=== PATIENT | male | born 1975 | race Caucasian/White ===

== ENCOUNTER 2017-01-13 16:00 | Emergency (ER) | payer BC ==
[2017-01-13 16:24] VITALS: BP 141/96
--- NOTE | 2017-01-13 16:44 | UC ---
Throat Pain/Nasal Andrei HPI - HPI Summary HPI Summary: 41 year old male with history of sinus infections present with sinus pressure, headache, ST, post nasal drip for 3 days and worsening. He has had some hoarse voice as well. He does smoke and advised to stop . - History of Current Complaint Chief Complaint: UCGeneralIllness Stated Complaint: SINUS Time Seen by Provider: 01/13/17 16:31 Hx Obtained From: Patient Onset/Duration: Gradual Onset Severity: Moderate Cough: Productive - Allergies/Home Medications Allergies/Adverse Reactions: Allergies Allergy/AdvReac Type Severity Reaction Status Date / Time NSAIDs Allergy See Comment Verified 01/13/17 16:27 Home Medications: Home Medications Fexofenadine HCl [Allergy 24-Hr] 180 mg PO DAILY PRN 01/13/17 [History Confirmed 01/13/17] Multiple Vitamin [Multi Vitamin] 1 tab PO DAILY 01/13/17 [History Confirmed ] Pantoprazole TAB (NF) [Protonix TAB (NF)] 40 mg PO BID 01/13/17 [History Confirmed 01/13/17] PMH/Surg Hx/FS Hx/Imm Hx Previously Healthy: Yes Respiratory History: Other - previous sinus infections Other Respiratory History: sinusitis - Surgical History Surgical History: Yes Surgery Procedure, Year, and Place: Appendectomy, 1991, [place]. GASTRIC BYPASS--2016 - Family History Known Family History: Positive: None - Social History Occupation: Employed Full-time Lives: With Family Alcohol Use: Rare Substance Use Type: Marijuana Smoking Status (MU): Heavy Every Day Tobacco Smoker Type: Cigarettes Amount Used/How Often: 1 PPD Length of Time of Smoking/Using Tobacco: 25 Years Have You Smoked in the Last Year: Yes Household Exposure Type: Cigarettes Cessation Counseling: Patient Advised to Stop - Immunization History Most Recent Influenza Vaccination: Not the 2014/2015 Season Review of Systems Constitutional: Fatigue ENT: Sore Throat, Ear Ache, Nasal Discharge, Sinus Congestion, Sinus Pain/ Tenderness All Other Systems Reviewed And Are Negative: Yes Physical Exam Triage Information Reviewed: Yes Appearance: Well-Appearing, No Pain Distress, Well-Nourished Vital Signs: Initial Vital Signs Temp 99.3 F 01/13/17 16:16 Pulse 72 01/13/17 16:16 Resp 22 01/13/17 16:16 BP 141/96 01/13/17 16:16 Pulse Ox 97 01/13/17 16:16 Vital Signs Reviewed: Yes Eye Exam: Normal ENT: Positive: Pharynx normal, Nasal congestion, Nasal drainage, TMs normal, Other: - maxillary sinus pressure b/l. Negative: TM bulging, TM dull, TM red Throat Pain/Nasal Course/Dx - Course Course Of Treatment: Viral at this time. Stop smoking. Treat with OTC for 2-3 days and if sx worsen then at that time start the antibiotics and if he does he is aware of SE -- also advise to f/u with PCP about infection and elevated BP which is likely elevated due to his illness - Differential Dx/Diagnosis Differential Diagnosis/HQI/PQRI: Sinusitis, Tonsillitis, URI Provider Diagnoses: Viral Sinusitis Discharge - Discharge Plan Condition: Good Disposition: HOME Prescriptions: Amoxicillin/Clavulanate TAB* [Augmentin TAB 875*] 875 mg PO BID #20 tab Patient Education Materials: Sinusitis (ED) Referrals: Dianne Hong [Primary Care Provider] - 4 Days Additional Instructions: As we discussed you appear to have a viral sinusitis. It is advised to use claritin, flonase, netti pot at this time and if your symptoms worsen over the next 2-3 days then you may start antibiotics . Good luck quitting smoking.
== END 2017-01-13 16:52 | disposition home or self-care (01) ==
LOC: UCCORT 16:00
DX: J32.8 Other chronic sinusitis (principal); J02.9 Acute pharyngitis, unspecified; Z88.6 Allergy status to analgesic agent; F17.210 Nicotine dependence, cigarettes, uncomplicated
CPT/HCPCS: 99212; G0463

== ENCOUNTER 2019-07-13 09:27 | Emergency (ER) | payer BC, OTHER ==
[2019-07-13 09:47] VITALS: BP 129/85
--- NOTE | 2019-07-13 10:09 | UC ---
FLU HPI - HPI Summary HPI Summary: 43-year-old male with flulike symptoms which started yesterday. - History of Current Complaint Chief Complaint: UCGeneralIllness Stated Complaint: FEVER CHILLS BODYACHES Time Seen by Provider: 07/13/19 09:51 Hx Obtained From: Patient Onset/Duration: Gradual Onset, Still Present Severity Currently: Mild Severity Initially: Mild Pain Intensity: 4 Associated Signs & Symptoms: Positive: Fever, Myalgia, Cough, Nasal Congestion, Headache - Allergy/Home Medications Allergies/Adverse Reactions: Allergies Allergy/AdvReac Type Severity Reaction Status Date / Time NSAIDS (Non-Steroidal AdvReac See Comment Verified 07/13/19 09:40 Anti-Inflamma Home Medications: Home Medications Multiple Vitamin [Multi Vitamin] 1 tab PO DAILY 01/13/17 [History Confirmed ] Pantoprazole TAB * [Protonix TAB*] 40 mg PO BID 01/13/17 [History Confirmed ] Albuterol HFA INHALER* [Ventolin HFA Inhaler*] 2 puff INH Q4H PRN 07/13/19 [ History Confirmed 07/13/19] Sertraline* [Zoloft*] 50 mg PO DAILY 07/13/19 [History Confirmed 07/13/19] PMH/Surg Hx/FS Hx/Imm Hx Previously Healthy: Yes Endocrine History: Diabetes Cardiovascular History: Hypertension - Surgical History Surgical History: Yes Surgery Procedure, Year, and Place: Appendectomy, 1991, [place]. gastric bypass, 2016. perforated bowel - Family History Known Family History: Positive: None, Hypertension, Other - LUNG CA - Social History Occupation: Employed Full-time Lives: With Family - 15 day old daughter at home Alcohol Use: Rare Substance Use Type: Marijuana Substance Use Comment - Amount & Last Used: daily Smoking Status (MU): Former Smoker Type: Cigarettes Amount Used/How Often: 1 PPD Length of Time of Smoking/Using Tobacco: 25 Years Have You Smoked in the Last Year: Yes When Did the Patient Quit Smoking/Using Tobacco: 03/25/2019 Household Exposure Type: Cigarettes - Immunization History Most Recent Influenza Vaccination: Not the Season Review of Systems All Other Systems Reviewed And Are Negative: Yes Constitutional: Positive: Fever, Chills ENT: Positive: Nasal Discharge Respiratory: Positive: Cough - Nonproductive cough Musculoskeletal: Positive: Myalgia Is Patient Immunocompromised?: No Physical Exam Triage Information Reviewed: Yes Appearance: Well-Appearing, No Pain Distress, Well-Nourished Vital Signs: Initial Vital Signs Temp 98.6 F 07/13/19 09:42 Pulse 88 07/13/19 09:42 Resp 16 07/13/19 09:42 BP 129/85 07/13/19 09:42 Pulse Ox 98 07/13/19 09:42 Vital Signs Reviewed: Yes Eyes: Positive: Conjunctiva Clear ENT: Positive: Pharynx normal, Nasal drainage - Clear nasal coryza, TMs normal, Uvula midline Neck: Positive: Supple, Nontender, No Lymphadenopathy Respiratory: Positive: Lungs clear, Normal breath sounds, No respiratory distress, No accessory muscle use Cardiovascular: Positive: RRR, No Murmur, Pulses Normal, Brisk Capillary Refill Musculoskeletal Exam: Normal Neurological Exam: Normal Psychological Exam: Normal Skin Exam: Normal Flu Course/Dx - Course Course Of Treatment: Rapid flu test: Negative Patient is comfortable here. - Differential Dx/Diagnosis Provider Diagnosis: URI (upper respiratory infection) Discharge ED - Sign-Out/Discharge Documenting (check all that apply): Patient Departure All imaging exams completed and their final reports reviewed: No Studies - Discharge Plan Condition: Good Disposition: HOME Patient Education Materials: Upper Respiratory Infection (ED) Referrals: Dianne Hong [Primary Care Provider] - Additional Instructions: Increase fluids, rest, [id number] cold medicines as directed. If you use [id number] cold medicines be aware they do usually contain ibuprofen or Tylenol. Follow-up with your primary care provider if no improvement in 3 or 4 days. - Billing Disposition and Condition Condition: GOOD Disposition: Home
[2019-07-13 10:13] LABS: Influenza A Molecular Negative (Negative); Influenza B Molecular Negative (Negative)
== END 2019-07-13 10:24 | disposition home or self-care (01) ==
LOC: UCCORT 09:27
DX: J06.9 Acute upper respiratory infection, unspecified (principal); E11.9 Type 2 diabetes mellitus without complications; I10 Essential (primary) hypertension; Z87.891 Personal history of nicotine dependence; Z88.6 Allergy status to analgesic agent
CPT/HCPCS: 99211; G0463